=== PATIENT | female | born 1980 | race Caucasian/White ===

== ENCOUNTER 2016-09-07 13:44 | Emergency (ER) ==
[2016-09-07 13:49] VITALS: BP 130/82; TEMP 98.2; BMI 23.6
[2016-09-07 14:22] LABS: BASOPHILS % (AUTO) 0.5 % (0.0-3.0); EOSINOPHILS # (AUTO) 0.1 K/ul (0.0-0.7); EOSINOPHILS % (AUTO) 1.4 % (0.0-7.0); HEMATOCRIT 38.4 % (37.0-47.0); HEMOGLOBIN 13.1 g/dl (12.0-16.0); IMMATURE GRANULOCYTE % (AUTO) 0.7 % (0.0-5.0); LYMPHOCYTES # (AUTO) 1.5 K/uL (0.60-3.4); MEAN CORPUSCULAR HEMOGLOBIN 30.7 pg (27.0-31.0); MEAN CORPUSCULAR HGB CONC 34.1 (31.8-35.4); MEAN CORPUSCULAR VOLUME 89.9 fl (81.0-99.0); MONOCYTES # (AUTO) 0.3 K/uL (0.4-2.0); MONOCYTES % (AUTO) 7.6 (0-10); NEUTROPHILS # (AUTO) 2.4 K/ul (2.0-6.9); NEUTROPHILS % (AUTO) 54.8; PLATELET COUNT 182 10^3/uL (140-440); RED BLOOD COUNT 4.27 10^6/ul (4.20-5.40); WHITE BLOOD COUNT 4.37 K/ul (4.6-10.2)
[2016-09-07 14:41] LABS: SERUM PREGNANCY INTERNAL QC INTERNAL QC VALID
[2016-09-07 14:45] LABS: ALBUMIN 4.1 g/dL (3.4-5.0); ALBUMIN/GLOBULIN RATIO 1.58; ANION GAP 10.9; BILIRUBIN,TOTAL 0.67 mg/dL (0.00-1.20); BUN/CREATININE RATIO 7.89; CALCIUM 9.4 mg/dL (8.2-10.2); CREATININE 0.76 mg/dL (0.60-1.30); POTASSIUM 3.9 mmol/L (3.5-5.10); TOTAL PROTEIN 6.7 g/dL (6.4-8.2)
[2016-09-07 14:52] LABS: BILIRUBIN,URINE Negative (NEGATIVE); KETONES,URINE Negative (NEGATIVE); LEUKOCYTE ESTERASE ,URINE Negative (NEGATIVE); NITRITE,URINE Negative (NEGATIVE); PROTEIN,URINE Negative (NEGATIVE); URINE, BLOOD Negative (NEGATIVE)
[2016-09-07 14:54] LABS: ADD URINE MICROSCOPIC NO
--- NOTE | 2016-09-07 15:15 | CT ---
EXAM: Noncontrast CT of the abdomen and pelvis HISTORY: Right lower quadrant pain, presently painless COMPARISON: None available TECHNIQUE: Noncontrast CT of the abdomen and pelvis FINDINGS: Noncontrast technique limits evaluation of the abdominal viscera. There is a 3 mm right hepatic lobe hypodensity, too small to characterize. The unenhanced gallbladder, spleen, adrenals, kidneys and pancreas are unremarkable. No renal or proximal to mid ureteral calculi identified. The distal asp ect of both ureters is obscured. No calcifications are seen along the expected course of the ureter s to suggest a distal ureteral calculi. Pelvic phleboliths are noted. Scattered small bowel air-fluid level is seen without abnormal dilation. There is mild colonic stoo l. There is mild wall thickening of the ascending and transverse colon without adjacent inflammator y changes. The appendix is not abnormally enlarged. No free air or significant free fluid is seen. There is a tiny fat containing umbilical hernia. Bila teral breast implants are seen with an irregular contour on the right. IMPRESSION: Findings suggestive of mild small bowel ileus or enteritis. Mild ascending and transverse colonic wall thickening favored to be secondary to underdistension. M ild colitis would be difficult to exclude. Unremarkable appendix. No evidence of urolithiasis. Partially imaged breast implants with irregular contour of the right implant.
--- NOTE | 2016-09-07 15:42 | ED.PDOC ---
General ED Provider: Dr. DELIA CISNEROS Chief Complaint: Abdominal Pain Stated Complaint: abdominal pain Time Seen by Physician: 13:44 (seen with nursing staff and attending) Mode of Arrival: Walk-In Information Source: Patient Exam Limitations: No limitations Primary Care Provider: YELENA TILLMAN Nursing and Triage Documentation Reviewed and Agree: Yes GI Complaint Exam - Abdominal Pain Complaint/Exam Onset: Gradual Duration: RLQ Timing: Intermittent Initial Severity: Mild Current Severity: Mild Location of Pain: RLQ Character: Reports: Aching Aggravating: Reports: None Alleviating: Reports: None Associated Signs and Symptoms: Denies: Diaphoresis, Fever, Cough, Chest pain, Dizziness, Back pain, Constipation, Blood in stool, Dysuria, Urinary frequency, Decreased urine output, Decreased appetite, Vaginal bleeding, Vaginal discharge , Nausea, Vomiting, Diarrhea, Sore throat, Decreased activity AAA Risk Factors: Reports: None Cardiac Risk Factors: Reports: None Ectopic Risk Factors: Reports: None Ovarian Torsion Risk Factors: Reports: Reproductive age Surgical Obstruction Risk Factors: Reports: Prior abdominal surgery Related Surgical History: Reports: None Patient Rh Status: Unknown Abdominal Findings: Present: None Differential Diagnoses: Appendicitis, Bowel Obstruction, Diverticulitis, Gastroenteritis, Renal Colic Review of Systems - Review Of Systems Constitutional: Reports: No symptoms Eyes: Reports: No symptoms Ears, Nose, Mouth, Throat: Reports: No symptoms Respiratory: Reports: No symptoms Cardiac: Reports: No symptoms GI: Reports: Abdominal pain : Reports: No symptoms Musculoskeletal: Reports: No symptoms Skin: Reports: No symptoms Neurological: Reports: No symptoms Endocrine: Reports: No symptoms Hematologic/Lymphatic: Reports: No symptoms All Other Systems: Reviewed and Negative Past Medical History - Past Medical History Previously Healthy: Yes Endocrine: Reports: None Cardiovascular: Reports: None Respiratory: Reports: None Hematological: Reports: None Gastrointestinal: Reports: None Genitourinary: Reports: None Neuro/Psych: Reports: None Musculoskeletal: Reports: None Cancer: Reports: None Last Menstrual Period: none - Surgical History General Surgical History: Reports: None - Family History Family History: Reports: None - Social History Smoking Status: Current every day smoker, Light tobacco smoker Hx Substance Use: No Alcohol Screening: Occasionally Physical Exam - Physical Exam Appearance: Well-appearing, No pain distress, Well-nourished Eyes: FRED, EOMI, Conjunctiva clear ENT: Ears normal, Nose normal, Oropharynx normal Respiratory: Airway patent, Breath sounds clear, Breath sounds equal, Respirations nonlabored Cardiovascular: RRR, Pulses normal, No rub, No murmur GI/: Soft, Nontender, No masses, Bowel sounds normal, No Organomegaly Musculoskeletal: Normal strength, ROM intact, No edema, No calf tenderness Skin: Warm, Dry, Normal color Neurological: Sensation intact, Motor intact, Reflexes intact, Cranial nerves intact, Alert, Oriented Psychiatric: Affect appropriate, Mood appropriate Interpretation - Radiology Interpretation Radiology Interpretation By: Radiologist Radiology Results: No acute changes Physician Notification - Case Discussed Physician Notified: PMD SAW PT IN ED Time of Notification: 15:43 Critical Care Note - Critical Care Note Total Time (mins): 0 Course - Course Hematology/Chemistry: 09/07/16 14:17 09/07/16 14:17 Orders, Labs, Meds: Lab Review 09/07/16 09/07/16 14:17 14:45 WBC 4.37 L RBC 4.27 Hgb 13.1 Hct 38.4 MCV 89.9 MCH 30.7 MCHC 34.1 RDW Coeff of Jorge Luis 13.2 Plt Count 182 Immature Gran % (Auto) 0.7 Neut % (Auto) 54.8 Lymph % (Auto) 35.0 [place] % (Auto) 7.6 Eos % (Auto) 1.4 Baso % (Auto) 0.5 Immature Gran # (Auto) 0.0 Neut # 2.4 Lymph # 1.5 [place] # 0.3 L Eos # 0.1 Baso # 0.0 Sodium 138 Potassium 3.9 Chloride 107 Carbon Dioxide 24 Anion Gap 10.9 BUN 6 L Creatinine 0.76 Estimated GFR (MDRD) 86.00 BUN/Creatinine Ratio 7.89 Glucose 87 Calcium 9.4 Total Bilirubin 0.67 AST 13 L ALT 9 L Alkaline Phosphatase 42 Total Protein 6.7 Albumin 4.1 Globulin 2.6 Albumin/Globulin Ratio 1.58 Amylase 48 Lipase 15 Serum , Qual Negative Urine Color Yellow Urine Clarity Clear Urine pH 7.0 Ur Specific [place] 1.010 Urine Protein Negative Urine Glucose (UA) Negative Urine Ketones Negative Urine Blood Negative Urine Nitrite Negative Urine Bilirubin Negative Urine Urobilinogen 0.2 Ur Leukocyte Esterase Negative Orders Category Date Time Status AMYLASE Stat LAB 09/07/16 14:17 Completed CBC W/ AUTO DIFF Stat LAB 09/07/16 14:17 Completed COMPREHENSIVE METABOLIC PANEL Stat LAB 09/07/16 14:17 Completed LIPASE Stat LAB 09/07/16 14:17 Completed SERUM Stat LAB 09/07/16 14:17 Completed UA [URINALYSIS C & S IF INDICATED] Stat LAB 09/07/16 14:[address] ABDOMEN/PELVIS WO CONTRAST Stat RADS 09/07/16 14:12 Completed Vital Signs: Temp Pulse Resp BP Pulse Ox 09/07/16 13:44 98.2 F 70 18 130/82 98 Departure - Departure Time of Disposition: 15:43 Disposition: HOME SELF-CARE Discharge Problem: Abdominal pain Instructions: Abdominal Pain (ED) Condition: Good Pt referred to PMD for follow-up: No Additional Instructions: Please call your Family Physician as soon as possible to schedule a follow-up appointment. Allergies/Adverse Reactions: Allergies No Known Allergies Allergy (Verified 09/07/16 13:49) Home Medications: Ambulatory Orders Aspirin [Aspirin Chewable] 81 mg PO DAILY 08/04/15 Multivitamin [Multi-Vitamin Daily] 1 each PO DAILY 08/04/15
== END 2016-09-07 15:45 | disposition home or self-care (01) ==
LOC: ED 13:44
DX: R10.31 Right lower quadrant pain (principal); F17.210 Nicotine dependence, cigarettes, uncomplicated
CPT/HCPCS: 36415; 80053; 81001; 82150; 83690; 84703; 85025; 99283

== ENCOUNTER 2018-01-07 09:35 | Outpatient (POV) | END 2018-01-07 17:00 | LOC: OUTPT 09:35 | PROVIDERS: ATTEND Otolaryngology | DX: H69.90 Unspecified Eustachian tube disorder, unspecified ear (principal) ==

== ENCOUNTER 2018-10-04 13:46 | Emergency (ER) ==
[2018-10-04 13:52] VITALS: BP 115/75; TEMP 98.2; BMI 25.7
--- NOTE | 2018-10-04 14:04 | ED.PDOC ---
General ED Provider: Dr. VIRIDIANA WALLER Chief Complaint: Head Injury Stated Complaint: Patient is brought by family after fall hitting head and possible loss of conciousness. Patient admits to ETOH use last night. 5 beers and Two shots of whisky. Denies any pain except mild headache Time Seen by Physician: 13:59 Information Source: Patient Primary Care Provider: YELENA TILLMAN Nursing and Triage Documentation Reviewed and Agree: Yes Does patient meet sepsis criteria?: No System Inflammatory Response Syndrome: Not Applicable Sepsis Protocol: For patient's 13 years and over: Temp is 96.8 and below OR 101 and greater Pulse >90 BPM Resp >20/minute Acutely Altered Mental Status Are patient's symptoms suggestive of a new infection, such as: -Pneumonia -Skin, Soft Tissue -Endocarditis -UTI -Bone, Joint Infection -Implantable Device -Acute Abdominal Infection -Wound Infection -Meningitis -Blood Stream Catheter Infection -Unknown Trauma/Injury Complaint Exam - Head Injury Complaint/Exam Location of Pain: Reports: Scalp Mechanism of Injury: Reports: Trauma (fall hitting a jeep ) Onset/Duration: 1 hour Symptoms Are: Still present Initial Severity: Moderate Current Severity: Mild Character: Reports: Dull Aggravating: Reports: None Alleviating: Reports: None Loss of Consciousness: Unknown SDH Risk Factors: Present: None Cervical Spine Injury Risk Factors: Present: None Related Surgical History: Reports: None Head Injury Findings: Present: Normal findings Glascow Coma Scale (see protocol): 15 Focal Weakness: Present: None Focal Sensory Loss: Present: None Gait: Normal Gag Reflex Present: Yes Finger to Nose: Normal Rhomberg Test Positive: No Babinski Sign: Negative Right, Negative Left Heel to Toe Normal: No Differential Diagnoses: Trauma, Other (etoh abuse. ) Review of Systems - Review Of Systems Constitutional: Reports: No symptoms Eyes: Reports: No symptoms Ears, Nose, Mouth, Throat: Reports: No symptoms Respiratory: Reports: No symptoms Cardiac: Reports: No symptoms GI: Reports: No symptoms : Reports: No symptoms Musculoskeletal: Reports: No symptoms Skin: Reports: No symptoms Neurological: Reports: Anxiety All Other Systems: Reviewed and Negative Past Medical History - Past Medical History Previously Healthy: Yes Endocrine: Reports: None Cardiovascular: Reports: A-Fib Respiratory: Reports: None Hematological: Reports: None Gastrointestinal: Reports: None Genitourinary: Reports: None Neuro/Psych: Reports: None Musculoskeletal: Reports: None Cancer: Reports: None Last Menstrual Period: YEARS - Surgical History General Surgical History: Reports: Other (Ablation for Atrial Fibrillation. ) - Family History Family History: Reports: None - Social History Smoking Status: Current every day smoker, Light tobacco smoker Hx Substance Use: No Alcohol Screening: Occasionally Physical Exam - Physical Exam Appearance: Ill-appearing (ETOH aroma and solmonlace ) Ill-appearing: Mild Pain Distress: Mild Eyes: FRED, EOMI, Conjunctiva clear Neck: Supple Respiratory: Airway patent, Breath sounds clear, Breath sounds equal, Respirations nonlabored Cardiovascular: RRR, Pulses normal, No rub, No murmur GI/: Soft, Nontender, No masses, Bowel sounds normal, No Organomegaly Musculoskeletal: Normal strength, ROM intact, No edema, No calf tenderness Skin: Warm, Dry Neurological: Alert, Oriented Psychiatric: Anxious Interpretation - Radiology Interpretation Radiology Interpretation By: Radiologist Radiology Results: Negative Exam Interpreted: CT Scan (Head and c spine ) Re-Evaluation - Re-Evaluation Status: Improved Critical Care Note - Critical Care Note Total Time (mins): 30 Course - Course Hematology/Chemistry: 10/04/18 14:35 10/04/18 14:35 Orders, Labs, Meds: Lab Review 10/04/18 10/04/18 14:35 14:35 WBC 5.90 RBC 4.46 Hgb 13.8 Hct 40.5 MCV 90.8 MCH 30.9 MCHC 34.1 RDW Coeff of Jorge Luis 13.6 Plt Count 223 Immature Gran % (Auto) 0.2 Neut % (Auto) 52.5 Lymph % (Auto) 40.2 [place] % (Auto) 6.3 Eos % (Auto) 0.5 Baso % (Auto) 0.3 Immature Gran # (Auto) 0.0 Neut # (Auto) 3.1 Lymph # (Auto) 2.4 [place] # (Auto) 0.4 Eos # (Auto) 0.0 Baso # (Auto) 0.0 Sodium 139.6 Potassium 3.70 Chloride 104.9 Carbon Dioxide 22.1 Anion Gap 16.30 BUN 5.4 L Creatinine 0.55 L Estimated GFR (MDRD) 124.00 BUN/Creatinine Ratio 9.81 Glucose 79.4 Calcium 9.72 Total Bilirubin 0.27 AST 27.2 ALT 22.4 Alkaline Phosphatase 55.9 Total Protein 6.57 Albumin 4.35 Globulin 2.22 Albumin/Globulin Ratio 1.95 Plasma/Serum Alcohol 195.2 H Orders Category Date Time Status BLOOD ALCOHOL Stat LAB 10/04/18 14:35 Completed CBC W/ AUTO DIFF Stat LAB 10/04/18 14:35 Completed COMPREHENSIVE METABOLIC PANEL Stat LAB 10/04/18 14:35 Completed Folic Acid MEDS 10/04/18 14:22 Discontinued 5 mg .ROUTE .STK-MED ONE Mvi, Adult No.1 with Vit K [Infuvite Adult] MEDS 10/04/18 14:24 Discontinued 10 ml IV .STK-MED ONE Sodium Chloride 0.9% [Sodium Chloride] 1,000 ml MEDS 10/04/18 14:30 Discontinued Folic Acid 1 mg Mvi, Adult No.1 with Vit K [Infuvite Adult] 10 ml Vitamin B-1 Inj [Thiamine] 100 mg IV 1,000 mls/hr Vitamin B-1 Inj [Thiamine] MEDS 10/04/18 14:23 Discontinued 200 mg .ROUTE .STK-MED ONE CT CERVICAL SPINE W/O CONTRAST Stat RADS 10/04/18 14:[address] HEAD W/O CONTRAST Stat RADS 10/04/18 14:05 Completed Medications Discontinued Medications Generic Name Dose Route Start Last Admin Trade Name Freq PRN Reason Stop Dose Admin Folic Acid 1 mg/ Multivitamins 1,011.2 mls @ 1,000 mls/hr 10/04/18 14:30 14:41 /Minerals 10 ml/ Thiamine HCl IV 1,000 mls/hr 100 mg/ Sodium Chloride .Q1H1M JULIANNE Administration Vital Signs: Temp Pulse Resp BP Pulse Ox 10/04/18 13:47 98.2 F 101 H 18 115/75 97 Departure - Departure Time of Disposition: 15:36 Disposition: HOME SELF-CARE Discharge Problem: Injury of head, Alcohol abuse Instructions: Head Injury (ED), Alcohol Intoxication (ED) Condition: Stable Pt referred to PMD for follow-up: Yes IPMP verified?: No Additional Instructions: Stop ETOH use Follow up with PCP in 3 days Allergies/Adverse Reactions: Allergies No Known Allergies Allergy (Verified 09/07/16 13:49) Home Medications: Ambulatory Orders 1 [No Reported Medications] 10/04/18 Disposition Discussed With: Patient, Family
[2018-10-04] MEDS ORDERED: THIAMINE ONE (14:23)
[2018-10-04] MEDS ORDERED: INFUVITE ADULT IV ONE (14:24)
[2018-10-04] MEDS ORDERED: FOLIC ACID 1 MG, INFUVITE ADULT 10 ML, THIAMINE 100 MG in SODIUM CHLORIDE 1,000 ML IV SCH (14:30)
--- NOTE | 2018-10-04 14:32 | CT ---
EXAM: CT of the head without contrast History: Head trauma. Technique: Multiplanar CT images through the head were obtained without the administration of IV con trast Findings: The visualized paranasal sinuses and mastoid air cells are clear in general. No acute asher varial abnormalities. Small right frontal scalp hematoma Intracranially the ventricular and cisternal spaces are normal in size, shape and configuration for a patient of this age. No dominant mass or midline shift. No hydrocephalous. No acute intracranial hemorrhage or abnormal extraaxial fluid collections. Impression: No acute intracranial process. Small right frontal scalp hematoma
--- NOTE | 2018-10-04 14:35 | CT ---
EXAM: CT of the cervical spine without contrast History: Head and neck trauma. Technique: Multiplanar CT images through the cervical spine were obtained without the administration of IV contrast Findings: The visualized upper lungs are clear. The visualized airway remains patent. No acute fracture or subluxation of the cervical spine. No prevertebral soft tissue swelling. Prede ntal space is not widened. Mild disc space narrowing at C5-6. Bony spinal canal is not significantl y compromised. Impression: No acute osseous abnormality of the cervical spine
[2018-10-04] MEDS: FOLIC ACID ONE (14:42)
[2018-10-07] MEDS: FOLIC ACID ONE (10:57)
== END 2018-10-04 15:45 | disposition home or self-care (01) ==
LOC: ED 13:46
DX: S09.90XA Unspecified injury of head, initial encounter (principal); F10.10 Alcohol abuse, uncomplicated; W19.XXXA Unspecified fall, initial encounter; F17.210 Nicotine dependence, cigarettes, uncomplicated
CPT/HCPCS: 36415; 80053; 80307; 85025; 96360; 96365; 99283